=== PATIENT | female | born 1975 | race African-American/Black ===

== ENCOUNTER 2017-11-08 07:58 | Emergency (ER) | payer OTHER ==
[2017-11-08] MEDS: HYDROcodone/APAP 5/325MG 1 TAB TABLET PO ×2 (08:57)
[2017-11-08] MEDS: NAPROXEN 500 MG TABLET PO ×2 (08:58)
[2017-11-08] MEDS: CYCLOBENZAPRINE 10 MG TABLET. PO ×2 (08:58)
== END 2017-11-08 09:34 | disposition home or self-care (01) ==
LOC: ER 07:58
DX: S23.3XXA Sprain of ligaments of thoracic spine, initial encounter (principal); S30.0XXA Contusion of lower back and pelvis, initial encounter; W10.9XXA Fall (on) (from) unspecified stairs and steps, initial encounter; Y93.89 Activity, other specified; Y99.8 Other external cause status; Y92.89 Other specified places as the place of occurrence of the external cause
CPT/HCPCS: 72072; 72100; 99284